=== PATIENT | female | born 1985 | race African-American/Black ===

== ENCOUNTER 2017-06-13 17:09 | Emergency (ER) | payer SELFPAY ==
[~2017-06-13] VITALS: Ht 165.1 cm; Wt 80.0 kg
[2017-06-13] MEDS ORDERED: HYDROCODONE/ACETAMINOPHEN 5/325MG TABLET PO ONE (18:30)
[2017-06-13] MEDS ORDERED: KETOROLAC 60MG/2ML VIAL IM ONE (20:45)
[2017-06-13 21:50] VITALS: BP 120/81
== END 2017-06-13 22:04 | disposition home or self-care (01) ==
LOC: ER 17:18
DX: M25.512 Pain in left shoulder (principal); M79.605 Pain in left leg; M79.604 Pain in right leg; M54.5 Low back pain; M25.552 Pain in left hip; V43.52XA Car driver injured in collision with other type car in traffic accident, initial encounter; Y93.89 Activity, other specified; Y92.488 Other paved roadways as the place of occurrence of the external cause
CPT/HCPCS: 72100; 72170; 73030; 73060; 73562; 73590; 96372; 99284; J1885; Z7610

== ENCOUNTER 2018-01-24 11:05 | Emergency (ER) | payer MEDICAID ==
[~2018-01-24] VITALS: Ht 170.2 cm; Wt 110.0 kg
[2018-01-24] MEDS: ALBUTEROL (0.083%) 2.5MG/3ML NEB HHN STA ×2 (16:00→16:30)
[2018-01-24] MEDS: IPRATROPIUM BROMIDE (0.02%) 0.5MG/2.5ML NEB HHN STA ×2 (16:00→16:30)
[2018-01-24 18:30] VITALS: BP 128/83
== END 2018-01-24 18:40 | disposition home or self-care (01) ==
LOC: ER 11:05
DX: R50.9 Fever, unspecified (principal)
CPT/HCPCS: 71045; 81025; 87804; 93005; 94640; 99285; J7611

== ENCOUNTER 2019-10-18 12:31 | Emergency (ER) | payer MEDICAID ==
[~2019-10-18] VITALS: Ht 170.2 cm; Wt 82.0 kg
[2019-10-18] MEDS ORDERED: LIDOCAINE HCL/PF 1% 10 MG/ML 5ML VIAL IJ ONE (15:00)
[2019-10-18] MEDS ORDERED: KETOROLAC 30MG/ML VIAL IV ONE (15:00)
[2019-10-18] MEDS ORDERED: HYDROCODONE/ACETAMINOPHEN 5/325MG TABLET PO ONE (15:00)
[2019-10-18] MEDS ORDERED: LIDOCAINE HCL/PF 1% 10 MG/ML 5ML VIAL ONE (15:14)
[2019-10-18] MEDS ORDERED: KETOROLAC 15MG/ML VIAL IM ONE (15:15)
[2019-10-18] MEDS ORDERED: LORAZEPAM 1MG TABLET PO ONE (16:15)
[2019-10-18 20:29] VITALS: BP 107/67
== END 2019-10-18 20:36 | disposition home or self-care (01) ==
LOC: ER 12:50
DX: N75.0 Cyst of Bartholin's gland (principal); J45.909 Unspecified asthma, uncomplicated
CPT/HCPCS: 81025; 87070; 87205; 96372; 99283; J1885; J3490; Z7610